=== PATIENT | male | born 1955 | race Caucasian/White ===

== ENCOUNTER 2018-11-23 19:22 | Emergency (ER) | payer OTHER ==
[~2018-11-23] VITALS: Ht 175.3 cm; Wt 97.5 kg
[~2018-11-23 19:22] MED LIST: ASCO500T6 PO; ASPI81TA16 PO; ATR20T PO; ATRV10T PO; CLOP75TA PO; CYAN-41 PO; FENO135C PO; FISH OIL 1,2001 EAC1 PO; GLUC15006 PO; GLUC1CAP3 PO; GMFB600T PO; HORMONE CREAM TOP; LISI10TA2 PO; METO50TA7 PO; MTP25TSR PO; MULT-35 PO; PRAS25CA5 PO; VITA PO
[2018-11-23 19:27] VITALS: BP 182/110
[2018-11-23] MEDS: NITROGLYCERIN 0.4 MG SL TABS BTL 25'S SL PRN ×3 (19:42→19:52)
[2018-11-23] MEDS ORDERED: ASPIRIN 81 MG CHEW (CHILDREN'S ASA) PO ONE (19:45)
[2018-11-23 19:46] LABS: BASOPHILS % (AUTO) 0 % (0-10); EOSINOPHILS # (AUTO) 0.1 10^3/uL (0.0-0.3); EOSINOPHILS % (AUTO) 0 % (0-10); HEMATOCRIT 43 % (40-54); HEMOGLOBIN 14.1 G/DL (13.3-17.7); LYMPHOCYTES # (AUTO) 1.9 X 10^3 (1.0-4.0); LYMPHOCYTES % (AUTO) 15 % (12-44); MEAN CORPUSCULAR HEMOGLOBIN 28 PG (25-34); MEAN CORPUSCULAR HGB CONC 33 G/DL (32-36); MEAN CORPUSCULAR VOLUME 87 FL (80-99); MEAN PLATELET VOLUME 10.1 FL (7.4-10.4); MONOCYTES # (AUTO) 1.1 X 10^3 (0.0-1.0); MONOCYTES % (AUTO) 8 % (0-12); NEUTROPHILS # (AUTO) 9.8 X 10^3 (1.8-7.8); NEUTROPHILS % (AUTO) 76 % (42-75); PLATELET COUNT 263 10^3/uL (130-400); WHITE BLOOD COUNT 12.8 10^3/uL (4.3-11.0)
--- NOTE | 2018-11-23 19:54 | ED Chest Pain ---
General Chief Complaint: Chest Pain Stated Complaint: HIGH BP/BACK AND STOMACH PAIN Source: patient History of Present Illness Date Seen by Provider: Nov 23, 2018 Time Seen by Provider: 19:27 Initial Comments PT ARRIVES VIA POV FROM HOME, DROVE SELF HERE, AMBULATES IN ON OWN WITHOUT DIFFICULTY STATES IT HAS FELT LIKE HE HAS HAD "INDIGESTION ALL DAY" STATES WHEN HIS GOT HOME THIS EVENING SHE CHECKED HIS BP AND "IT WAS HIGHER THAN NORMAL AND SHE GOT ALARMED" --160/105. STATES NORMALLY IN 140'S /90'S STATES HE HAS ALOT OF BELCHING, ALOT OF PRESSURE AND FIRMNESS IN UPPER ABDOMEN AND DISCOMFORT AND FULLNESS IN LOWER CHEST NO NAUSEA/VOMITING NO SWEATS NO SHORTNESS OF BREATH NO SWELLING IN LEGS / FEET OR PAIN IN CALVES HAD NSTEMI IN 2010 AND HAD STENT X 1 PLUS ANGIOPLASTY STATES HE THOUGHT HE HAD INDIGESTION THEN ALSO LAST CATH WAS 2014--HAD PATENT STENT AT THAT TIME, AND NO INTERVENTION WAS DONE AT THAT TIME HAS HISTORY OF SIGNIFICANT MULTIVESSEL DISEASE SEES DR. DOWNING, BUT MISSED LAST APPOINTMENT AND HAS NOT SEEN HIM IN AT LEAST A YEAR PT ALSO HAS HISTORY OF HTN, HYPERLIPIDEMIA. PT DENIES BEING DIABETIC, BUT IS ON METFORMIN--STATES "HE PUT ME AND MY BOTH ON IT TO IMPROVE CIRCULATION TO OUR BRAINS" TAKES 81 MG ASPIRIN, PT IS ALSO ON PLAVIX NO CHANGES IN MEDICATIONS OR MISSED DOSES OF MEDICATIONS PCP: RADHA LOO AT [facility] IN [facility] CHEMIST PHYSICAL: DR. DOWNING Allergies and Home Medications Allergies Coded Allergies: strawberry (Verified Allergy, Unknown, Anaphylaxis, 11/23/18) Home Medications Ascorbic Acid 500 Mg Tablet, 500 MG PO DAILY, (Reported) Aspirin 81 Mg Tablet.dr, 81 MG PO DAILY, (Reported) Atorvastatin 20 Mg Tablet, 20 MG PO HS, (Reported) Clopidogrel Bisulfate 75 Mg Tablet, 75 MG PO DAILY, (Reported) Cyanocobalamin (Vitamin B-12) 1,000 Mcg Tablet, 1,000 MCG PO DAILY, (Reported) Fenofibric Acid (Choline) 135 Mg Capsule.dr, 135 MG PO HS, (Reported) Glucosamine HCl 1,500 Mg Tablet, 1,500 MG PO BID, (Reported) Lisinopril 10 Mg Tablet, 10 MG PO DAILY Prescribed by: CYNTHIA BARNETT on 01/31/15 0239 Multivitamin 1 Each Tablet, 1 TAB PO DAILY, (Reported) Marland-3 Fatty Acids/Fish Oil 1 Each Capsule, 2 CAP PO BID, (Reported) Prasterone (Dhea) 25 Mg Capsule, 25 MG PO DAILY, (Reported) Vitamin A 10,000 Unit Cap, 10,000 UNIT PO DAILY, (Reported) [Hormone Cream] , TOP DAILY, (Reported) COMPOUNDED HORMONE CREAM [facility] Patient Home Medication List Home Medication List Reviewed: Yes Review of Systems Review of Systems Constitutional: see HPI; No chills, No diaphoresis, No dizziness, No fever; other (DENIES ANY ALCOHOL USE TODAY) EENTM: No Symptoms Reported Respiratory: No Symptoms Reported Cardiovascular: See HPI; Denies Edema, Denies Irregular Heart Rate, Denies Lightheadedness, Denies Palpitations, Denies Syncope Gastrointestinal: See HPI; Denies Nausea, Denies Vomiting Genitourinary: No Symptoms Reported Musculoskeletal: no symptoms reported; No back pain Skin: no symptoms reported Psychiatric/Neurological: Anxiety ("UNDER ALOT OF STRESS THIS SUMMER" ) Endocrine: No Symptoms Reported Hematologic/Lymphatic: No Symptoms Reported Past Rponezn-Qmpfmx-Pqlugm Hx Patient Social History Alcohol Use: Regular Use (BEER + MIXED DRINKS) Recreational Drug Use: No Smoking Status: Former Smoker (/2 PPD, QUIT 2010) Type Used: Cigarettes Recent Foreign Travel: No Contact w/Someone Who Travel: No Immunizations Up To Date Tetanus Booster (TDap): More than 5yrs PED Vaccines UTD: No Past Medical History Surgeries: Yes (CARDIAC CATH 2010 WITH STENT X 1 AND ANBIOPLASTY; CATH 2014--NO INTERVENTION; RIGHT KNEE SURGERY X 5; LEFT CATARACT SURGERY) Cardiac, Coronary Stent, Eye Surgery, Orthopedic Respiratory: Yes Sleep Apnea Cardiac: Yes (NSTEMI 2010--STENT X 1 IN RCA PLUS ANGIOPLASTY; CATH 2014--PATENT STENT, NO INTERVENTION) Coronary Artery Disease, Heart Attack, High Cholesterol, Hypertension Neurological: No Reproductive Disorders: No Genitourinary: No Gastrointestinal: No Musculoskeletal: Yes Arthritis Endocrine: Yes Hypothyroidsim, Diabetes, Non-Insulin dep HEENT: Yes Cataract Cancer: No Psychosocial: No Integumentary: No Blood Disorders: No Family Medical History Completed stroke G8 BROTHER Dementia 19 MOTHER G8 BROTHER Diabetes mellitus 19 MOTHER Myocardial infarction 19 FATHER Neoplasm 19 FATHER (COLON AND PROSTATE CA) 19 MOTHER (BREAST CANCER) G8 SISTER (BREAST CANCER) G8 SISTER (BREAST CANCER) Physical Exam Vital Signs Vital Signs - First Documented 11/23/18 11/23/18 19:27 19:35 Temp 99.1 Pulse 98 Resp 18 B/P (MAP) 182/110 (134) Pulse Ox 97 O2 Delivery Room Air O2 Flow Rate 2.00 Capillary Refill : Less Than 3 Seconds Height, Weight, BMI Height: 5'9.00" Weight: 236lbs. 2.0oz. 107.826219vn; BMI Method:Stated General Appearance: No Apparent Distress, WD/WN, Anxious Neck: Full Range of Motion, Normal Inspection, Non Tender, Supple; No Carotid Bruit, No JVD Respiratory: Chest Non Tender, Normal Breath Sounds, No Accessory Muscle Use, No Respiratory Distress Cardiovascular: Regular Rate, Rhythm, No Edema, No JVD, No Murmur, Normal Peripheral Pulses Gastrointestinal: Normal Bowel Sounds, No Organomegaly, No Pulsatile Mass, Soft, Tenderness (EPIGASTRIC TENDERNESS) Extremity: Normal Capillary Refill, Normal Inspection, Normal Range of Motion, Non Tender, No Calf Tenderness, No Pedal Edema Neurologic/Psychiatric: Alert, Oriented x3, No Motor/Sensory Deficits, adjunct teacher II- XII Norm as Tested Skin: Normal Color, Warm/Dry Progress/Results/Core Measures Results/Orders Lab Results Laboratory Tests Test 11/23/18 19:35 Range/Units White Blood Count 12.8 H 4.3-11.0 10^3/uL Red Blood Count 4.98 4.35-5.85 10^6/uL Hemoglobin 14.1 13.3-17.7 G/DL Hematocrit 43 40-54 % Mean Corpuscular Volume 87 80-99 FL Mean Corpuscular Hemoglobin 28 25-34 PG Mean Corpuscular Hemoglobin Concent 33 32-36 G/DL Red Cell Distribution Width 14.0 10.0-14.5 % Platelet Count 263 130-400 10^3/uL Mean Platelet Volume 10.1 7.4-10.4 FL Neutrophils (%) (Auto) 76 H 42-75 % Lymphocytes (%) (Auto) 15 12-44 % Monocytes (%) (Auto) 8 0-12 % Eosinophils (%) (Auto) 0 0-10 % Basophils (%) (Auto) 0 0-10 % Neutrophils # (Auto) 9.8 H 1.8-7.8 X 10^3 Lymphocytes # (Auto) 1.9 1.0-4.0 X 10^3 Monocytes # (Auto) 1.1 H 0.0-1.0 X 10^3 Eosinophils # (Auto) 0.1 0.0-0.3 10^3/uL Basophils # (Auto) 0.0 0.0-0.1 10^3/uL Prothrombin Time 12.9 12.2-14.7 SEC INR Comment 0.9 0.8-1.4 Activated Partial Thromboplast Time 30 24-35 SEC Sodium Level 141 135-145 MMOL/L Potassium Level 4.0 3.6-5.0 MMOL/L Chloride Level 107 98-107 MMOL/L Carbon Dioxide Level 24 21-32 MMOL/L Anion Gap 10 5-14 MMOL/L Blood Urea Nitrogen 27 H 7-18 MG/DL Creatinine 1.36 H 0.60-1.30 MG/DL Estimat Glomerular Filtration Rate 53 BUN/Creatinine Ratio 20 Glucose Level 100 70-105 MG/DL Calcium Level 9.7 8.5-10.1 MG/DL Corrected Calcium 8.5-10.1 MG/DL Magnesium Level 1.8 1.6-2.4 MG/DL Total Bilirubin 0.5 0.1-1.0 MG/DL Aspartate Amino Transf (AST/SGOT) 31 5-34 U/L Alanine Aminotransferase (ALT/SGPT) 35 0-55 U/L Alkaline Phosphatase 67 40-136 U/L Total Creatine Kinase 222 H 30-200 U/L Creatine Kinase MB 1.7 <6.6 NG/ML Myoglobin 76.6 10.0-92.0 NG/ML Troponin I < 0.028 <0.028 NG/ML B-Type Natriuretic Peptide 29.9 <100.0 PG/ML Total Protein 7.7 6.4-8.2 GM/DL Albumin 4.6 H 3.2-4.5 GM/DL Amylase Level 263 H 25-125 U/L Lipase 481 H 8-78 U/L Serum Alcohol < 10 <10 MG/DL My Orders Orders - SY ORTEGA DO Cbc With Automated Diff (11/23/18 19:32) Magnesium (11/23/18 19:32) Chest 1 View, Ap/Pa Only (11/23/18 19:32) Ekg Tracing (11/23/18 19:32) Cardiac Profile 1 (11/23/18 19:32) Comprehensive Metabolic Panel (11/23/18 19:32) Myoglobin Serum (11/23/18 19:32) Protime With Inr (11/23/18 19:32) Partial Thromboplastin Time (11/23/18 19:32) O2 (11/23/18 19:32) Monitor-Rhythm Ecg Trace Only (11/23/18:32) Lipid Panel (11/24/18 06:00) Ed Iv/Invasive Line Start (11/23/18 19:32) Creatine Kinase (11/23/18 19:32) Creatine Kinase Mb (11/23/18 19:32) Lipase (11/23/18:32) Amylase (11/23/18 19:32) BNP (11/23/18 19:32) Nitroglycerin 0.4 Mg Btl 25's (Nitrostat (11/23/18 19:45) Aspirin Chewable Tablet (Baby Aspirin Ch (11/23/18 19:45) Ua Culture If Indicated (11/23/18 19:32) Pantoprazole Injection (Protonix Injecti (11/23/18 20:30) Hyoscyamine Sl Tablet (Levsin Sl Tablet) (11/23/18 20:30) Ct Abdomen/Pelvis Wo (11/23/18 20:16) Hyoscyamine Sl Tablet (Levsin Sl Tablet) (11/23/18 20:13) Pantoprazole Injection (Protonix Injecti (11/23/18 20:14) Alcohol (11/23/18 20:22) Medications Given in ED Current Medications Medications Dose Ordered Sig/Jerica Route Start Time Stop Time Status Last Admin Dose Admin Aspirin 324 mg ONCE ONCE PO 11/23/18 19:45 11/23/18 19:46 DC 11/23/18 19:42 324 MG Hyoscyamine Sulfate 0.25 mg ONCE ONCE PO 11/23/18 20:30 11/23/18 20:31 DC 11/23/18 20:23 0.25 MG Nitroglycerin 0.4 mg UD PRN SL 11/23/18 19:45 11/23/18 19:59 DC 11/23/18 19:52 0.4 MG Pantoprazole 40 mg ONCE ONCE IV 11/23/18 20:30 11/23/18 20:31 DC 11/23/18 20:23 40 MG Vital Signs/I&O 11/23/18 11/23/18 19:27 19:35 Temp 99.1 Pulse 98 Resp 18 B/P (MAP) 182/110 (134) Pulse Ox 97 97 O2 Delivery Room Air Nasal Cannula O2 Flow Rate 2.00 Progress Progress Note : Progress Note SLIGHT IMPROVEMENT IN DISCOMFORT WITH NTG, BUT BP MUCH IMPROVED ON REVIEWING TEST RESULTS WITH PT, AND INFORMING HIM OF NEED FOR HOSPITALIZATION, AND FURTHER TREATMENT AND EVALUATION, PT IS ADAMANT THAT HE WILL NOT STAY IN THE HOSPITAL HERE OR BE TRANSFERRED TO ANOTHER HOSPITAL ( CURRENTLY WE ARE ON FULL DIVERSION HERE ) PT ADVISED THAT HE LIKELY IS HAVING MORE THAN ONE PROBLEM--BOTH HEART AND PANCREATITIS, AND THAT HE COULD FROM EITHER CONDITION IF HE WAS NOT TREATED. EMPHATICALLY ENCOURAGED HIM TO BE ADMITTED TO HOSPITAL, AND TOLD HIM THAT HIS PROBLEMS WOULD NOT GO AWAY BY "JUST TAKING IT EASY FOR THE NEXT DAY OR TWO", HE STATES HE WANTS TO DO. PT CONTINUES TO ADAMANTLY REFUSE TO BE ADMITTED. I OFFERED TO SPEAK TO HIS ON THE PHONE, AND HE DECLINES. I ADVISED HIM HE COULD GO HOME AND POSSIBLY TONIGHT, AND HE STATES "I'LL TAKE THAT CHANCE" PT SIGNED AMA PAPERS. Initial ECG Impression Date: Nov 23, 2018 Initial ECG Impression Time: 19:37 Initial ECG Rate: 89 Initial ECG Rhythm: Normal Sinus (LBBB) Initial ECG Comparisson: Changed (NEW LBBB FROM 2015) Diagnostic Imaging Comments CXR--NO ACUTE PROCESS, PER RADIOLOGIST REPORT AT 2029 CT ABDOMEN/PELVIS--INFLAMMATORY CHANGES IN LUQ--PANCREATITIS VS DIVERTICULITIS OF SPLENIC FLEXURE--PER RADIOLOGIST REPORT AT 2053 Reviewed: Reviewed by Me Departure Impression Primary Impression: Left against medical advice Additional Impressions: Chest pain New onset left bundle branch block (LBBB) Pancreatitis, acute Renal insufficiency HTN (hypertension) Disposition: 07 AGAINST MEDICAL ADVICE Condition: Against Medical Advice Departure-Patient Inst. Referrals: ROMA LOO (PCP/Family) Primary Care Physician SY ORTEGA DO Nov 23, 2018 19:53
[2018-11-23] MEDS ORDERED: METF-397 (19:55)
[2018-11-23] MEDS ORDERED: FAMO20TA5 (19:55)
[2018-11-23 20:04] LABS: INR 0.9 (0.8-1.4); PROTHROMBIN TIME PATIENT 12.9 SEC (12.2-14.7)
--- NOTE | 2018-11-23 20:04 | Diagnostic Imaging Report ---
INDICATION: Hypertension, epigastric pain. COMPARISON: 01/30/2015. FINDINGS: Single view of the chest demonstrates clear lungs bilaterally. The heart is prominent but stable. There is no pneumothorax. Osseous structures are normal. IMPRESSION: No acute cardiopulmonary findings. Dictated by: Dictated on workstation # [id number]
[2018-11-23 20:06] LABS: ALANINE AMINOTRANSFERASE 35 U/L (0-55); ALBUMIN 4.6 GM/DL (3.2-4.5); ALKALINE PHOSPHATASE 67 U/L (40-136); AMYLASE 263 U/L (25-125); BILIRUBIN,TOTAL 0.5 MG/DL (0.1-1.0); BUN/CREATININE RATIO 20; CALCIUM 9.7 MG/DL (8.5-10.1); CARBON DIOXIDE 24 MMOL/L (21-32); CHLORIDE 107 MMOL/L (98-107); CREATINE KINASE 222 U/L (30-200); CREATININE SERUM 1.36 MG/DL (0.60-1.30); GFR ESTIMATED 53; GLUCOSE 100 MG/DL (70-105); LIPASE 481 U/L (8-78); MAGNESIUM 1.8 MG/DL (1.6-2.4); SODIUM 141 MMOL/L (135-145); TOTAL PROTEIN 7.7 GM/DL (6.4-8.2)
[2018-11-23] MEDS ORDERED: HYOSCYAMINE 0.125 MG (LEVSIN) TAB ONE (20:13)
[2018-11-23 20:14] LABS: CREATINE KINASE MB 1.7 NG/ML (<6.6)
[2018-11-23] MEDS ORDERED: PANTOPRAZOLE 40 MG (PROTONIX) VIAL ONE (20:14)
[2018-11-23] MEDS ORDERED: HYOSCYAMINE 0.125 MG (LEVSIN) TAB PO ONE (20:30)
[2018-11-23] MEDS ORDERED: PANTOPRAZOLE 40 MG (PROTONIX) VIAL IV ONE (20:30)
--- NOTE | 2018-11-23 20:50 | Diagnostic Imaging Report ---
PROCEDURE: CT abdomen and pelvis without contrast. TECHNIQUE: Multiple contiguous axial images were obtained through the abdomen and pelvis without the use of intravenous contrast. Auto Exposure Controls were utilized during the CT exam to meet ALARA standards for radiation dose reduction. INDICATION: Epigastric and abdominal pain, hypertension COMPARISON: None FINDINGS: The lung bases are clear. There is mild fatty infiltration of the liver. The gallbladder is unremarkable. The spleen, adrenal glands, and kidneys are normal. There is a focal area of inflammation seen in the left upper quadrant which may involve the tail of pancreas and/or splenic flexure. This may be the result of acute pancreatitis or subtle diverticulitis. Please correlate with pancreatic enzymes and obtain followup. The remainder of the visualized bowel is unremarkable. There is no pancreatic pseudocyst or mass. There is no lymphadenopathy. There is some minimal atherosclerotic disease throughout the abdominal aorta without evidence of aneurysm. Distal ureters and urinary bladder are normal. Slight prostate enlargement is seen. There is no hernia. Osseous structures are age-appropriate. IMPRESSION: 1. Inflammatory change in the left upper quadrant either secondary to focal pancreatitis of the pancreatic tail or minimal diverticulitis of the splenic flexure. Recommend correlation with pancreatic enzymes. Followup is recommended. There is no associated abscess, free air, or free fluid. 2. Fatty liver. 3. Slight prostate enlargement. 4. No bowel obstruction or ileus identified. Dictated by: Dictated on workstation # [id number]
== END 2018-11-23 21:00 | disposition left against medical advice (07) ==
LOC: EDUNIT# 19:22 → ER 19:24
DX: I10 Essential (primary) hypertension (principal); N28.9 Disorder of kidney and ureter, unspecified; K85.90 Acute pancreatitis without necrosis or infection, unspecified; I44.7 Left bundle-branch block, unspecified; I25.2 Old myocardial infarction; E78.5 Hyperlipidemia, unspecified; E78.00 Pure hypercholesterolemia, unspecified; I25.10 Atherosclerotic heart disease of native coronary artery without angina pectoris; E11.9 Type 2 diabetes mellitus without complications; E03.9 Hypothyroidism, unspecified; Z95.5 Presence of coronary angioplasty implant and graft; Z79.82 Long term (current) use of aspirin; Z79.02 Long term (current) use of antithrombotics/antiplatelets; Z87.891 Personal history of nicotine dependence; Z80.3 Family history of malignant neoplasm of breast; Z80.0 Family history of malignant neoplasm of digestive organs; Z80.42 Family history of malignant neoplasm of prostate
CPT/HCPCS: 36415; 71045; 74176; 80053; 80320; 82150; 82550; 82553; 83690; 83735; 83874; 83880; 84484; 85025; 85610; 85730; 93005; 93041; 96374

== ENCOUNTER → 2022-03-16 | Outpatient (CLI) | payer OTHER ==
[~2022-03-16] MED LIST changes: +ASCO500T17 PO; -ASCO500T6 PO; +FAMO20TA5; -LISI10TA2 PO; +LISI10TA25 PO; +METF-397; -VITA PO; +[UNRECOGNIZED DRUG - CODE] PO
[2022-03-16 13:56] LABS: ABSOLUTE RETIC # 89 10e9/uL (24-90)
[2022-03-16 14:30] LABS: NEUTROPHILS % (MANUAL) 60 %
[2022-03-16 14:31] LABS: ANISOCYTOSIS MARKED; BAND NEUTROPHILS 0 %; BASOPHILS % (MANUAL) 1 %; ELLIPT/OVALOCYTES SLIGHT; EOSINOPHILS % (MANUAL) 2 %; LYMPHOCYTES % (MANUAL) 25 %; MONOCYTES % (MANUAL) 12 %; POLYCHROMASIA MODERATE; SCHISTOCYTES SLIGHT
[2022-03-16 15:38] LABS: BASOPHILS # (AUTO) 0.1 10^3/uL (0.0-0.1); BASOPHILS % (AUTO) 1 % (0-10); EOSINOPHILS # (AUTO) 0.1 10^3/uL (0.0-0.3); EOSINOPHILS % (AUTO) 1 % (0-10); HEMATOCRIT 33 % (40-54); HEMOGLOBIN 9.2 g/dL (13.3-17.7); LYMPHOCYTES # (AUTO) 1.6 10^3/uL (1.0-4.0); LYMPHOCYTES % (AUTO) 25 % (12-44); MEAN CORPUSCULAR HEMOGLOBIN 20 pg (25-34); MEAN CORPUSCULAR HGB CONC 28 g/dL (32-36); MEAN CORPUSCULAR VOLUME 71 fL (80-99); MEAN PLATELET VOLUME 10.5 fL (9.0-12.2); MONOCYTES # (AUTO) 0.6 10^3/uL (0.0-1.0); MONOCYTES % (AUTO) 10 % (0-12); NEUTROPHILS % (AUTO) 62 % (42-75); PLATELET COUNT 267 10^3/uL (130-400); WHITE BLOOD COUNT 6.4 10^3/uL (4.3-11.0)
== END ==
LOC: LABNPT 13:48
PROVIDERS: ATTEND Physician Assistant
DX: Z01.89 Encounter for other specified special examinations (principal)
CPT/HCPCS: 85007; 85025; 85045; 85055